=== PATIENT | male | born 1975 | race Caucasian/White ===

== ENCOUNTER 2018-06-02 23:03 | Emergency (ER) | payer OTHER, SELFPAY ==
[2018-06-02 23:12] VITALS: BP 118/79; PULSE 78; RESP 15; TEMP 35.9; O2SAT 100; BMI 28.7
[2018-06-02 23:25] VITALS: BP 102/67; PULSE 50; O2SAT 100
[2018-06-03] MEDS: METOCLOPRAMIDE 10 MG/2 ML INJ IV (00:42)
[2018-06-03] MEDS: SODIUM CHLORIDE 0.9% 1,000 ML 1000 ML IV (00:43)
--- NOTE | 2018-06-03 00:44 | DI.CT.S_ITS ---
PROCEDURE: CT HEAD/BRAIN WO CON INDICATIONS: worst headache of life TECHNIQUE: Noncontrast 4.5 mm thick angled axial sections acquired from the foramen magnum to the vertex, with coronal and sagittal reformats. For radiation dose reduction, the following was used: automated exposure control, adjustment of mA and/or kV according to patient size. COMPARISON: None. FINDINGS: Image quality: Excellent. CSF spaces: Basal cisterns are patent. No extra-axial fluid collections. Ventricles are normal in size and shape. Brain: No midline shift. No intracranial masses or hemorrhage. Eugene-white matter interface is normal. Skull and face: Calvarium and visualized facial bones are intact, without suspicious lesions. Sinuses: Visualized sinuses and mastoids are clear. IMPRESSION: No acute intracranial disease process. Dictated by: America Bhat MD, PhD on 06/03/2018 at 7:43 Approved by: America Bhat MD, PhD on 06/03/2018 at 7:46
[2018-06-03] MEDS: KETOROLAC 60 MG/2 ML VIAL 15 MG IV (02:14)
[2018-06-03] MEDS: DEXAMETHASONE 10 MG/ML VIAL IV (02:14)
[2018-06-03 02:37] VITALS: BP 119/59; PULSE 71
--- NOTE | 2018-06-03 03:03 | ED.HA ---
HPI - Headache General Chief Complaint: Headache Stated Complaint: MIGRAINE Time Seen by Provider: 06/02/18 23:10 Source: patient Mode of arrival: ambulatory Limitations: no limitations History of Present Illness HPI Narrative: 42-year-old male, otherwise healthy with history of migraine headaches presents with a severe global headache that woke him from sleep a few hours ago. He states bright lights, loud noises and activity make his headache worse. He denies any injury nor fever or chills. He denies any neck pain nor numbness, tingling or weakness. MD Complaint: headache Onset (ago): hour(s) Onset description: sudden Location: diffuse Severity: severe Severity scale (1-10): 8 Quality: aching, throbbing, different than previous headaches and worst headache of life Relieving factors: nothing Exacerbating factors: exertion, light and noise Context: occurred at rest Associated symptoms: nausea and vomiting Related Data Home Medications Medication Instructions Recorded Confirmed tramadol 50 mg PO PRN #0 09/17/17 03/10/18 nitrox xoide PO 03/10/18 03/10/18 Allergies Allergy/AdvReac Type Severity Reaction Status Date / Time No Known Drug Allergies Allergy Verified 06/02/18 23:12 Review of Systems Review of Systems All systems reviewed & are unremarkable except as noted in HPI and below Constitutional Denies chills, Denies fever(s), Reports headache(s), Denies lethargy and Denies weakness Eyes Denies change in vision, Denies eye discharge, Denies irritation and Denies loss of vision ENT Ears, Nose, Mouth, and Throat: Denies change in voice, Reports headache(s), Denies neck pain and Denies sore throat Cardiovascular Denies chest pain, Denies irregular heart rhythm, Denies lightheadedness, Denies palpitations, Denies dyspnea, Denies dyspnea on exertion and Denies orthopnea Respiratory Denies cough, Denies dyspnea, Denies dyspnea on exertion and Denies wheezing Gastrointestinal Gastrointestinal: Denies abdominal pain, Denies change in bowel habits, Denies diarrhea, Reports nausea and Reports vomiting Genitourinary Denies hematuria, Denies flank pain, Denies urinary incontinence and Denies urinary urgency Musculoskeletal Denies neck pain Integumentary/Breasts Denies pruritus, Denies erythema, Denies rash and Denies wounds Neurologic Denies confusion, Reports headache(s), Denies loss of vision and Denies weakness Psychiatric Denies anxiety, Denies confusion, Denies depression, Denies homicidal ideation and Denies suicidal ideation Endocrine Denies palpitations Hematologic/Lymphatic Denies easy bruising Allergic/Immunologic Denies wheezing [facility] Social History Smoking Status: Current every day smoker Exam Narrative Exam Narrative: 42-year-old male, obviously uncomfortable, sitting in a dark room clutching his head Initial Vital Signs Initial Vital Signs: Vital Signs Temperature 96.7 F L 06/02/18 23:12 Pulse Rate 78 06/02/18 23:12 Respiratory Rate 15 06/02/18 23:12 Blood Pressure 118/79 06/02/18 23:12 Pulse Oximetry 100 06/02/18 23:12 Const General: cooperative and well developed Nutritional Appearance: well nourished Orientation: alert, awake, oriented x3 and not confused HENMT Head: normocephalic and atraumatic Ears: external ears normal and TM's normal bilaterally Nose: external nose normal and No nasal discharge Face and sinus: sinuses nontender, face symmetric, no sinus tenderness and No dry mucous membranes Mouth: oral mucosae normal and moist mucous membranes Teeth and gingiva: dentition normal Throat: tonsils normal and uvula midline Eyes General: appearance normal, both eyes and all related structures Eyelids: eyelids normal Conjunctivae: conjunctivae normal Sclera: sclerae normal Pupils: PERRL EOM: EOM intact bilaterally Neck Neck: normal visual inspection, trachea midline, No lymphadenopathy, No midline deformity and No JVD Lymphatic: No lymphedema Chest Chest: normal inspection of the chest Resp Effort & Inspection: normal respiratory effort, able to speak in complete sentences, no respiratory distress and no use of accessory muscles Auscultation: clear to auscultation bilaterally, no rales, no rhonchi and no wheezes Cardio Rate: regular rate Rhythm: regular rhythm Heart Sounds: no click, no gallops, no murmurs and no rubs Pulses: normal peripheral pulses GI Inspection: non-distended Palpation: soft, no hepatosplenomegaly, No guarding, No pulsatile mass and No tender Auscultation: normal bowel sounds Back/Spine/Pelvis Back: No CVA tenderness Cervical Spine: cervical ROM normal and No pain with cervical ROM Thoracic/Lumbar Spine: thoracic and lumbar spine normal to inspection Skin General: no rashes or lesions noted, No jaundice and No petechiae Neuro General: alert, oriented x3, gait normal and no focal motor deficits Speech: speech normal Extrem General: full ROM, no clubbing, cyanosis or edema, no pedal edema and no calf tenderness Psych Appearance: well kempt Mental Status: mental status grossly normal Attitude: cooperative Thought Content: normal and suicidality Judgment: judgment good Scores NIH Stroke Scale Level of Conciousness: Alert, keenly responsive Ask month/age: Answers both questions correctly. Open/close eyes, close hand: Performs both tasks correctly Best gaze horizontal: Normal Visual gonzales: No visual loss Facial palsy: Normal symetrical movement Left arm drift: No drift for full 10 sec Right arm drift: No drift for full 10 sec Left leg drift: No drift for full 10 sec Right leg drift: No drift for full 10 sec Limb ataxia: Absent Sensory on face/arms/legs: Normal, no sensory loss Best language: No aphasia, normal Dysarthria: Normal Extinction or inattention: No abnormality Total NIH Stroke scale score: 0 Course Orders Ordered: ED Orders 06/03/18 00:44 CT head/brain wo con Stat Discontinued Medications Dexamethasone (Decadron) 10 mg IV NOW ONE Stop: 06/03/18 02:10 Last Admin: 06/03/18 02:14 Dose: 10 mg Sodium Chloride (Normal Saline 0.9%) 1,000 mls @ 1,000 mls/hr IV BOLUS ONE Stop: 06/03/18 01:33 Last Infusion: 06/03/18 01:39 Dose: 0 mls/hr Admin: 06/03/18 00:43 Dose: 1,000 mls/hr Ketorolac Tromethamine (Toradol) 15 mg IV NOW ONE Stop: 06/03/18 00:35 Last Admin: 06/03/18 02:14 Dose: 15 mg Metoclopramide HCl (Reglan) 10 mg IV NOW ONE Stop: 06/03/18 00:35 Last Admin: 06/03/18 00:42 Dose: 10 mg Reevaluation(s) Reevaluation #1: Patient reports a near complete resolution of symptoms after the above-stated therapies Vital Signs - 8 hr 06/02/18 23:12 06/02/18 23:25 06/03/18 02:37 Temperature 96.7 F L Pulse Rate 78 50 L 71 Respiratory Rate 15 Blood Pressure 118/79 Blood Pressure [Left Arm] 102/67 119/59 L Pulse Oximetry 100 100 MDM - Headache Imaging Data CT scan - head: Radiologist's impression: No acute process Discharge Plan Departure Patient Disposition: Home Clinical Impression: Migraine headache Instructions: DI for Migraine Activity Restrictions/Additional Instructions: There is no evidence of an emergent or life threatening illness at this time, but follow up with your doctor in 1-2 days is recommended nonetheless to continue to rule out serious underlying causes of your symptoms. Please call the office for an appointment. Please return to the Emergency Department for any worsening or persistent symptoms. Please take medications as directed. Prescriptions: No Action nitrox xoide PO RF: 0 tramadol 50 MG tablet 50 mg PO PRN Qty: 0 RF: 0 Referrals: Miguel Angel Bosch MD [Physician] -
== END 2018-06-03 03:35 | disposition home or self-care (01) ==
PROVIDERS: Emergency Provider Emergency Medicine
DX: G43.909 Migraine, unspecified, not intractable, without status migrainosus (principal)
CPT/HCPCS: 70450; 96361; 96374; 96375; 99283; 99284; J1100; J1885; J2765

== ENCOUNTER 2019-04-21 05:48 | Emergency (ER) | payer OTHER, SELFPAY ==
--- NOTE | 2019-04-21 05:52 | DI.RAD.S_ITS ---
PROCEDURE: XR HAND LT MIN 3V INDICATIONS: crush injury, left index finger and left middle finger TECHNIQUE: 3 views of the hand(s) acquired. COMPARISON: None. FINDINGS: Bones: No fractures or dislocations. Carpal bones are normally aligned. No suspicious bony lesions. Soft tissues: There is soft tissue swelling is appreciated about the index finger. Punctate skin calcifications. No radiopaque foreign body. No suspicious soft tissue calcifications. IMPRESSION: No acute fracture or dislocation. Dictated by: Roland Turner M.D. on 04/21/2019 at 7:52 Approved by: Roland Turner M.D. on 04/21/2019 at 7:54
[2019-04-21 05:57] VITALS: BP 112/84; PULSE 50; RESP 18; TEMP 36.9; O2SAT 100; BMI 21.5
--- NOTE | 2019-04-21 06:03 | ED.UPPEXIN ---
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 He was climbing a chain driven by a sprocket on one of the machines of the shop. His left index finger became trapped between the pocket and the chain drive. Paramedics were summoned. The chain was cut by other maintenance workers. He arrives with a significant soft tissue deformity on the left index finger. There is also some impact on the middle finger, the patient has significant less discomfort on the middle finger. There is no active bleeding. He has sensation to the tip of the finger. He is right-hand dominant. There are no other injuries. Related Data Home Medications Medication Instructions Recorded Confirmed tramadol 50 mg PO PRN #0 09/17/17 03/10/18 nitrox xoide PO 03/10/18 03/10/18 Previous Rx's Medication Instructions Recorded oxycodone-acetaminophen [Percocet] 1 tab PO Q4H PRN #15 tab 04/21/19 Allergies Allergy/AdvReac Type Severity Reaction Status Date / Time No Known Drug Allergies Allergy Verified 06/02/18 23:12 Review of Systems Constitutional Comments: No concerns other than the left hand pain. Musculoskeletal Comments: Left finger injury as noted in HPI. Integumentary/Breasts Comments: Soft tissue defect in the left index finger. Neurologic Comments: Severe left index pain, sensation is intact. [facility] Medical History (Updated 04/21/19 @ 06:48 by López Elias MD) Migraine headache (Acute) Syncope (Acute) Surgical History (Updated 04/21/19 @ 06:07 by López Elias MD) No pertinent past surgical history (Acute) Social History (Updated 04/21/19 @ 06:08 by López Elias MD) Smoking Status: Current every day smoker substance use type: marijuana Social History (Updated 04/21/19 @ 06:08 by López Elias MD) Smoking Status: Current every day smoker substance use type: marijuana Exam Initial Vital Signs Initial Vital Signs: Vital Signs Temperature 98.4 F 04/21/19 05:57 Pulse Rate 50 L 04/21/19 05:57 Respiratory Rate 18 08/02/19 05:57 Blood Pressure 112/84 04/21/19 05:57 Pulse Oximetry 100 04/21/19 05:57 Const General: acute distress (In pain) Nutritional Appearance: average body habitus and well nourished Orientation: alert, awake and oriented x3 Skin Other: Recent both hands. No rashes. Injuries limited to the left index and middle finger. Neuro General: alert, oriented x3, gait normal and no focal motor deficits Speech: speech normal Other: Left hand neuro exam is intact. He has sensation at the tip of the left index and middle fingers. Two-point discrimination is intact. Extrem General: full ROM, no clubbing, cyanosis or edema, no pedal edema and no calf tenderness Other: The patient has crush injury to the left index and left middle finger. On the left index finger there is compression matching the cough got his finger was pressed into. There is a page tyrel on the dorsal middle phalanx, compressing the soft tissue to the level of the bone. There is a matching compression on the volar side of the finger, a little distal to the dorsal injury, the 2 compression sites are not symmetric. Flashes apparently intact on the medial lateral aspects of the finger. He has significant pain in the finger, there is slight flexion at the PIP and DP joints. Capillary refill to the finger is intact. On the right middle finger, there is a pinch marked to the radial side of the distal phalanx. The compression as much shallower, the patient has very little pain in his finger. He has full range of motion and normal sensation in the left middle finger. Course Course Narrative: Left index finger was cleansed with alcohol proximally. Digital block was achieved with medial-lateral injections of lidocaine 1%, a total of 2 mL. This was done to accommodate cleansing of the wound site which is covered with grease. Anesthesia was obtained. His nurse cleanse the left hand, especially the wound site. Once the site was cleansed, it is noted there appeared to be expansion of the soft tissue at the crush sites on the index finger. Capillary refill remains intact. Orthopedics, Dr. Crews, was consulted. He recommended a soft wrap/splint, with minimal pressure on the wound. He denies follow up with Orthopedics Clinic, the patient does not need an operation at this time and the wound will require monitoring by Orthopedics. He will be discharged with Percocet for pain. Orders Ordered: ED Orders 04/21/19 05:52 XR hand LT min 3V Stat Discontinued Medications Oxycodone/Acetaminophen (Percocet 5/325) 1 tab PO NOW ONE Stop: 04/21/19 06:56 Last Admin: 04/21/19 06:59 Dose: 1 tab Vital Signs - 8 hr 04/21/19 05:57 04/21/19 06:15 04/21/19 06:30 Temperature 98.4 F Pulse Rate 50 L 55 L Respiratory Rate 18 15 Blood Pressure 112/84 Blood Pressure [Right Arm] 137/87 114/77 Pulse Oximetry 100 100 100 04/21/19 07:10 Temperature Pulse Rate 58 L Respiratory Rate 15 Blood Pressure 130/82 Blood Pressure [Right Arm] Pulse Oximetry 100 MDM - Extremity Injury (Upper) Imaging Data Left hand fingers:: My impression: No bony injury identified. Soft tissue defect noted in the left index finger. Discharge Plan Departure Patient Disposition: Home Clinical Impression: Crushing injury of finger of left hand Discharge Date/Time: 04/21/19 07:08 Interventions: ED Discharge Assessment Last Done: 04/21/19 07:10 Instructions: DI for Crush Injury Activity Restrictions/Additional Instructions: Fortunately the left index finger has normal vascular supply and nerves are intact. There is no fracture. Tendons appear to be intact. Keep the soft wrap on your left fingers to limit mobility. Percocet every 4 hr as needed for pain. Tylenol or Advil can be used later when pain is starting to subside. I have consulted Orthopedics, Dr. Crews regarding your injury. Please contact his office to arrange follow-up. Return to the ER as needed. I have given you a work release for the next 4 days. Prescriptions: New oxycodone-acetaminophen [Percocet] 5-325 mg tablet 1 tab PO Q4H PRN (Reason: pain) Qty: 15 RF: 0 No Action nitrox xoide PO RF: 0 tramadol 50 MG tablet 50 mg PO PRN Qty: 0 RF: 0 Referrals: Elias Crews MD [Physician] - Stand Alone Forms: Work Release Note
[2019-04-21 06:15] VITALS: BP 137/87; PULSE 55; RESP 15; O2SAT 100
[2019-04-21 06:30] VITALS: BP 114/77; O2SAT 100
[2019-04-21] MEDS: OXYCODONE/ACETAMINOPHEN 5/325 TABLET 1 TAB PO (06:59)
[2019-04-21 07:10] VITALS: BP 130/82; PULSE 58; RESP 15; O2SAT 100
== END 2019-04-21 07:08 | disposition home or self-care (01) ==
PROVIDERS: Emergency Provider Emergency Medicine
DX: S67.191A Crushing injury of left index finger, initial encounter (principal); W23.1XXA Caught, crushed, jammed, or pinched between stationary objects, initial encounter; Y99.0 Civilian activity done for income or pay
CPT/HCPCS: 73130; 99283

== ENCOUNTER 2020-01-17 09:22 | Emergency (ER) | payer BC, SELFPAY ==
[2020-01-17 09:30] VITALS: BP 119/76; PULSE 78; RESP 18; TEMP 37.2; O2SAT 99
[2020-01-17] MEDS: AMOXICILLIN 250 MG CAPSULE 500 MG PO (11:04)
--- NOTE | 2020-01-17 11:12 | ED_ITS ---
HPI - Dental/Oral General Chief complaint: Dental/Oral Stated complaint: broken tooth lower right side x1 month Time Seen by Provider: 01/17/20 10:39 Source: patient Mode of arrival: Ambulatory Limitations: no limitations History of Present Illness HPI Narrative: CC: Toothache HPI: The patient is a 44-year-old male who comes into the emergency department complaining that he has a right lower posterior toothache that has been present for the last 5-6 weeks. The patient states that he is unable to get in to be seen by a dentist to have the tooth taking care of. He states that I want the tooth taken care of now. The is I will do whenever a half to on the street to relieve the pain and discomfort. He has been using oxycodone for the pain and discomfort. He denies any fever chills or sweats. He admits to smoking cigarettes but does not drink alcohol and smokes marijuana. He denies any diabetes asthma or heart murmur. He denies any chest pain cough shortness of breath difficulty in breathing. He has had no heart murmur. He denies any abdominal pain nausea vomiting diarrhea change in bowel habits or any urinary symptoms. Related Data Previous Rx's Medication Instructions Recorded amoxicillin 500 mg PO TID #21 tab 01/17/20 ibuprofen 600 mg PO QID PRN #30 tab 01/17/20 prednisone 40 mg PO DAILY #10 tab 01/17/20 tramadol 50 mg PO Q6H PRN #14 tab 01/17/20 Allergies Allergy/AdvReac Type Severity Reaction Status Date / Time No Known Drug Allergies Allergy Verified 06/02/18 23:12 Review of Systems Review of Systems Narrative: Review of systems were all negative except for those mentioned in the history of present illness. Patient History Medical History Migraine headache (Acute) Syncope (Acute) Surgical History No pertinent past surgical history (Acute) Social History Smoking Status: Current every day smoker substance use type: marijuana Smoking Status: Current every day smoker alcohol intake frequency: 0-2 drinks per day Substance Use Type: marijuana Exam Narrative Exam Narrative: PHYSICAL EXAM: CONSTITUTIONAL: Awake, Alert, Oriented, Coherent, Cooperative in NAD. Does not appear toxic or ill. HEAD: AT/NC EENT: PERRL, FROM of eyes, no discharge, NOSE:No epistaxis or nasal drainage MOUTH:Oral mucosa is moist and pink, posterior pharynx is without erythema or exudate. The patient's 2nd right posterior lower molar tooth number 31 appears to be partially fractured and has a filling in it. It is mildly tender to palpation and tapping with a tongue blade. There is no swelling of the gingiva or of the alveolar ridge. Palpation of the outside mandible reveals no tenderness or soft tissue swelling. NECK: Supple, no obvious JVD, Trachea is midline without stridor, no palpable LN. LUNGS: Clear, symmetrical breath sounds without respiratory distress. HEART: Normal heart tones, regular rhythm and rate without murmur. NEURO: Awake, alert, oriented, conversive, cranial nerves II-XII are symmetrical , moves all 4 extremities and is ambulatory. Initial Vital Signs Initial Vital Signs: Vital Signs Temperature 99.0 F 01/17/20 09:30 Pulse Rate 78 01/17/20 09:30 Respiratory Rate 18 01/17/20 09:30 Blood Pressure 119/76 01/17/20 09:30 Pulse Oximetry 99 01/17/20 09:30 Course Course Course Narrative: 11:19: On being discharged the patient informed the nurses that he was mad and angry because no blood work was done and I have not been administered any pain medications. I went back into the room and confronted the patient. I asked if he was having any pain or discomfort and needed any pain medicine before I left the room and he said no that he had taken his ibuprofen and his pain was under control. The patient was informed that we do not have any dentist on staff or oral surgeon. He was mad and angry because no dentist will see him and he wanted his tooth taking care of. I informed the patient that there is nothing that we can do for his tooth here in the emergency department. He was informed that he may have a persistent infection or recurrent infection in his tooth for which she was given the amoxicillin. For t he inflammation of the tooth he was administered prednisone 40 mg per day for 5 days, ibuprofen 600 mg Q 6 hours and tramadol for rescue medication. The patient was referred to Dr. Rock. Dentist in [facility]. To evaluate and treat. Orders Ordered: Discontinued Medications Amoxicillin (Trimox) 500 mg PO NOW ONE Stop: 01/17/20 10:49 Last Admin: 01/17/20 11:04 Dose: 500 mg Documented by: LARISSA Prednisone (Deltasone) 40 mg PO NOW ONE Stop: 01/17/20 11:15 Last Admin: 01/17/20 11:23 Dose: 40 mg Documented by: LARISSA Vital Signs Vital signs: Vital Signs - 8 hr 01/17/20 09:30 Temperature 99.0 F Pulse Rate 78 Respiratory Rate 18 Blood Pressure 119/76 Pulse Oximetry 99 Discharge Plan Departure Patient Disposition: Home Clinical Impression: Toothache Discharge Date/Time: 01/17/20 11:51 Instructions: Tooth Abscess, DI for Dental Pain, Tooth Fracture Activity Restrictions/Additional Instructions: 1. Follow up with a Dentist 2. Take ibuprofen every 6 hours for pain and discomfort as necessary. 3. Take the amoxicillin 500 mg 3 times a day until gone for the next 7 days. 4. For severe uncontrolled pain use the tramadol 50 mg Q 6 hours as needed as a rescue medication. 5. Try and call a dentist for a virtual appointment 6. If you can not find a dentist you will need to check with [facility] ED or / [facility] to be seen possibly by an Oral surgeon. We do not have an oral surgeon here at [facility]. However, the dentist Dr. Rcok will do extractions. Prescriptions: New amoxicillin 500 mg tablet 500 mg PO TID Qty: 21 RF: 0 ibuprofen 600 mg tablet 600 mg PO QID PRN (Reason: pain) Qty: 30 RF: 0 tramadol 50 mg tablet 50 mg PO Q6H PRN (Reason: pain) Qty: 14 RF: 0 prednisone 20 mg tablet 40 mg PO DAILY Qty: 10 RF: 0 Referrals: Chai Rock DMD [Physician] - Stand Alone Forms: Work Release Note
[2020-01-17] MEDS: predniSONE 20 MG TABLET 40 MG PO (11:23)
--- NOTE | 2020-01-17 11:36 | PC.NURSE ---
1105 This RN entered room just coming on shift to medicate pt. He states he has been here for 2 hours and no one has looked at his mouth and he is ready to go shoot up black tar because he is in pain and we wont help him. Informed him that I just arrived and came in to assist him and get him his medications. Pt states he doesn't need antibiotics and denies a tooth infection. States he just needs the country to reopen so he can get to a dentist. Pt continues to swear and states we are not helping him. States he is going to tell his insurance not to pay his bill. Charge nurse and Dr. Shrestha made aware. 1109- Dr. Shrestha enters room. hears patients complaints and explain plan of care. Dr Informs pt that he is getting prescriptions for pain medications, ibuprofen, and antibiotics. reminds pt that he needs to follow up with oral surgery which we do not have. Pt verbalizes understanding. This RN goes to get D/C papers and prescription.
== END 2020-01-17 11:51 | disposition home or self-care (01) ==
PROVIDERS: Emergency Provider Emergency Medicine
DX: K08.89 Other specified disorders of teeth and supporting structures (principal)
CPT/HCPCS: 99283

== ENCOUNTER → 2021-09-04 15:00 | Outpatient (CLI) | payer OTHER, SELFPAY ==
[2021-09-04 15:29] LABS: Add Manual Diff / Slide Review NO; Basophils Absolute Auto 0 /uL (0-100); Basophils Percent Auto 0.6 % (0-2); Eosinophils Absolute Auto 400 /uL (0-450); Eosinophils Percent Auto 4.3 % (2-4); Hematocrit 42.8 % (41-53); Hemoglobin 14.6 g/dL (13.5-17.5); Lymphocytes Absolute Auto 3200 /uL (1100-4500); Lymphocytes Percent Auto 37.5 % (25-40); Mean Corpuscular HGB Conc 34.1 % (30-36); Mean Corpuscular Hemoglobin 28.9 PG (26-34); Mean Corpuscular Volume 84.8 fL (80-100); Monocytes Absolute Auto 400 /uL (0-900); Monocytes Percent Auto 5.2 % (3-14); Neutrophils Absolute Auto 4500 /uL (1500-7000); Neutrophils Percent Auto 52.4 % (50-75); Platelet Count 189 X10^3/uL (150-400); Red Blood Cell Count 5.05 X10^6/uL (4.5-5.9); Red Cell Distribution Width 13.1 % (11.6-14.8); White Blood Cell Count 8.6 X10^3/uL (4.5-11.0)
[2021-09-04 15:56] LABS: Alanine Aminotransferase 16 IU/L (<50); Albumin 4.8 g/dL (3.5-5.0); Albumin Globulin Ratio 1.7 (1.0-2.8); Alkaline Phosphatase 55 U/L (38-126); Aspartate Aminotransferase 26 IU/L (17-59); BUN Creatinine Ratio 16.7 (6-22); Bilirubin Total 0.5 mg/dL (0.2-1.3); Blood Urea Nitrogen 15 mg/dL (9-20); Calcium 9.6 mg/dL (8.4-10.2); Carbon Dioxide 33 mmol/L (22-32); Chloride 104 mmol/L (98-107); Estimated Glomerular Filt Rate > 60.0 mL/min (>60); Globulin 2.8 g/dL (1.7-4.1); Glucose 97 mg/dL (70-100); HEMOLYSIS < 15 (0-50); Potassium 3.9 mmol/L (3.4-5.1); Sodium 142 mmol/L (137-145); Total Protein 7.6 g/dL (6.3-8.2)
[2021-09-04 16:26] LABS: TSH w/ Reflex to FT4 2.83 uIU/mL (0.47-4.68)
== END ==
PROVIDERS: PCP Family Medicine; Referring Provider Family Medicine; Visit Provider Family Medicine
DX: R55 Syncope and collapse (principal)
CPT/HCPCS: 36415; 80053; 84443; 85025

== ENCOUNTER → 2021-09-10 15:08 | Outpatient (CLI) | payer OTHER, SELFPAY ==
--- NOTE | 2021-09-29 16:54 | P.HOLT.S_ITS ---
Doorperson Or Luggage Porter Report Referral & Results Date Patient Seen: 09/10/21 Requesting provider: Ramon Pemberton Indication: Syncope Duration of monitoring (days): 5 Diary information: There was 1 patient triggered event that was associated with sinus rhythm Data: Minimum heart rate identified was 38 beats per minute at 04:53 on 09/14/2021 Maximum heart rate was 153 beats per minute at 21:02 on 09/12/2021 Less than 1% of identified beats were ventricular or supraventricular ectopic in origin, which would classify them as rare. No pauses were identified Impression: No etiology for syncope identified on this study which is essentially normal Overall patient was modestly bradycardic at times, with minimum heart rate in the 30s as above Clinical correlation suggested
== END ==
PROVIDERS: PCP Family Medicine; Referring Provider Family Medicine; Visit Provider Family Medicine
DX: R55 Syncope and collapse (principal)
CPT/HCPCS: 93242; 93244

== ENCOUNTER → 2022-09-29 11:56 | Outpatient (CLI) | payer OTHER, SELFPAY ==
--- NOTE | 2022-09-29 11:58 | DI.RAD.S_ITS ---
PROCEDURE: XR FOOT RT MIN 3V INDICATIONS: right foot pain at the first mtp, previous surgery site TECHNIQUE: 3 views of the foot were acquired. COMPARISON: None. FINDINGS: Bones: No fractures or dislocations. Mild 1st MTP joint osteoarthritic changes are seen with joint space narrowing and subchondral sclerosis. No gross bony erosive changes. No suspicious bony lesions. Soft tissues: Soft tissue swelling over medial aspect of 1st MTP joint is seen. No radiopaque foreign bodies or abnormal soft tissue calcifications. No tibiotalar joint effusion. Achilles tendon appears normal. IMPRESSION: Mild soft tissue swelling over medial aspect of 1st MTP joint with mild 1st MTP joint osteoarthritis. No fracture or dislocation. No evidence of osteomyelitis. Dictated by: Aleksander Thorne M.D. on 09/29/2022 at 13:38 Approved by: Aleksander Thorne M.D. on 09/29/2022 at 13:39
== END ==
PROVIDERS: PCP Family Medicine; Referring Provider Nurse Practitioner Family; Visit Provider Nurse Practitioner Family
DX: M19.071 Primary osteoarthritis, right ankle and foot (principal); M79.674 Pain in right toe(s); M79.89 Other specified soft tissue disorders
CPT/HCPCS: 73630